=== PATIENT | female | born 1975 | race Caucasian/White ===

== ENCOUNTER 2016-07-31 18:13 | Emergency (ER) | payer SELFPAY | END 2016-07-31 18:42 | disposition left against medical advice (07) | LOC: ED 18:13 | DX: R51 Headache (principal); Z53.21 Procedure and treatment not carried out due to patient leaving prior to being seen by health care provider ==

== ENCOUNTER 2018-09-11 13:08 | Inpatient (IN) | payer OTHER ==
[2018-09-11 14:04] LABS: Basophils % (Auto) 0.5 % (0.0-1.8); Eosinophils % (Auto) 0.8 % (0.0-4.3); Hematocrit 41.5 % (30.3-42.9); Hemoglobin 13.9 gm/dl (10.1-14.3); Lymphocytes # (Auto) 3.3 K/mm3 (1.2-5.4); Lymphocytes % (Auto) 54.6 % (13.4-35.0); Mean Corpuscular HGB Conc 33 % (30-34); Mean Corpuscular Volume 93 fl (79-97); Monocytes # (Auto) 0.4 K/mm3 (0.0-0.8); Monocytes % (Auto) 6.3 % (0.0-7.3); Platelet Count 200 K/mm3 (140-440); Red Blood Count 4.48 M/mm3 (3.65-5.03); Red Cell Distribution Width 14.5 % (13.2-15.2)
--- NOTE | 2018-09-11 14:04 | Emergency Department Report ---
ED Chest Pain HPI - General Chief Complaint: Chest Pain Stated Complaint: CHEST PAIN Time Seen by Provider: 09/11/18 14:02 Source: patient, EMS Mode of arrival: Stretcher Limitations: No Limitations - History of Present Illness Initial Comments: Patient is a 43-year-old female that presents emergency room for chest pain. Patient states her chest pain side one hour ago. Patient states her chest pain was a 8 out of 10 and felt like something squeezing her heart. Patient states the pain is better with rest and nitroglycerin and aspirin. Patient states the pain was worse with exertion. Patient states she has high blood pressure. Patient states her blood pressures normally controllable lately she's been having elevated blood pressure and leg swelling. Patient denies shortness of breath. Patient denies abdominal pain. Patient denies fever. Patient denies diaphoresis. Patient denies nausea vomiting. MD Complaint: chest pain -: Sudden Onset: during rest Pain Location: substernal, left chest Pain Radiation: RUE, LUE Severity scale (0 -10): 7 Quality: heaviness Consistency: constant Improves With: nitroglycerin, rest Worsens With: exertion re: denies: nausea, vomting, diaphoresis, dyspnea, sense of impending doom Other Symptoms: leg swelling. denies: cough, fever, syncope, rash, acid taste in mouth, palpitations, burping Treatments Prior to Arrival: aspirin, nitroglycerin Aspirin use within the Past 7 Days: (1) Yes - Related Data On Oral Contraceptives: No Home Medications Medication Instructions Recorded Confirmed Last Taken Lisinopril/Hydrochlorothiazide 1 tab PO QDAY 09/11/18 09/11/18 Unknown [Zestoretic 20-12.5 mg] Allergies Allergy/AdvReac Type Severity Reaction Status Date / Time No Known Allergies Allergy Unverified 09/11/18 13:43 Heart Score - HEART Score History: Moderately suspicious EKG: Non-specific Age: 45-65 Risk factors: 1-2 risk factors Troponin: < normal limit HEART Score: 4 ED Review of Systems ROS: Stated complaint: CHEST PAIN Other details as noted in HPI Constitutional: denies: chills, fever Eyes: denies: eye pain, eye discharge, vision change ENT: denies: ear pain, throat pain Respiratory: denies: cough, shortness of breath, wheezing Cardiovascular: chest pain. denies: palpitations Endocrine: no symptoms reported Gastrointestinal: denies: abdominal pain, nausea, diarrhea Genitourinary: denies: urgency, dysuria, discharge Musculoskeletal: denies: back pain, joint swelling, arthralgia Skin: denies: rash, lesions Neurological: denies: headache, weakness, paresthesias Psychiatric: denies: anxiety, depression Hematological/Lymphatic: denies: easy bleeding, easy bruising ED Past Medical Hx - Past Medical History Previous Medical History?: Yes Hx Hypertension: Yes - Surgical History Past Surgical History?: No - Family History Family history: no significant - Social History Smoking Status: Current Every Day Smoker Substance Use Type: None - Medications Home Medications: Home Medications Medication Instructions Recorded Confirmed Last Taken Type Lisinopril/Hydrochlorothiazide 1 tab PO QDAY 09/11/18 09/11/18 Unknown History [Zestoretic 20-12.5 mg] ED Physical Exam - General Limitations: No Limitations General appearance: alert, in no apparent distress - Head Head exam: Present: atraumatic, normocephalic - Eye Eye exam: Present: normal appearance - ENT ENT exam: Present: mucous membranes moist - Neck Neck exam: Present: normal inspection - Respiratory Respiratory exam: Present: normal lung sounds bilaterally. Absent: respiratory distress - Cardiovascular Cardiovascular Exam: Present: regular rate, normal rhythm. Absent: systolic murmur, diastolic murmur, rubs, gallop - GI/Abdominal GI/Abdominal exam: Present: soft, normal bowel sounds - Rectal Rectal exam: Present: deferred - Extremities Exam Extremities exam: Present: normal inspection - Back Exam Back exam: Present: normal inspection - Neurological Exam Neurological exam: Present: alert, oriented X3 - Psychiatric Psychiatric exam: Present: normal affect, normal mood - Skin Skin exam: Present: warm, dry, intact, normal color. Absent: rash ED Course Vital Signs 09/11/18 09/11/18 09/11/18 13:43 13:44 13:50 Temperature 97.9 F Pulse Rate 63 73 Respiratory 21 16 Rate Blood Pressure 130/84 130/84 [Right] O2 Sat by Pulse 98 98 Oximetry 09/11/18 14:53 Temperature Pulse Rate 61 Respiratory 14 Rate Blood Pressure 130/94 [Right] O2 Sat by Pulse 99 Oximetry - Reevaluation(s) Reevaluation #1: Discussed all results with patient. Patient will be admitted to the hospitalist service. Patient agrees to plan of care. 09/11/18 14:34 - Consultations Consultation #1: Hospitalist consulted for admission. Hospitalist to admit patient. Hospitalist to assume care patient. 09/11/18 14:35 JOAN score - Joan Score Age > 65: (0) No Aspirin use within the Past 7 Days: (1) Yes 3 or more CAD Risk Factors: (0) No 2 or more Angina events in past 24 hrs: (0) No Known CAD with more than 50% Stenosis: (0) No Elevated Cardiac Markers: (0) No ST Deviation Greater than 0.5mm: (0) No JOAN Score: 1 ED Medical Decision Making - Lab Data Result diagrams: 09/11/18 13:51 09/11/18 13:51 - EKG Data -: EKG Interpreted by Me EKG shows normal: sinus rhythm, axis, intervals, QRS complexes, ST-T waves Rate: tachycardia - EKG Data Interpretation: LVH - Radiology Data Radiology results: report reviewed AP CHEST : 09/11/18 13:08:00 CLINICAL: Chest pain. COMPARISON:None FINDINGS: Normal heart and pulmonary vessels. The lungs are hyperinflated and clear. The bones and soft tissues are normal. IMPRESSION: Pulmonary hyperinflation and otherwise normal. - Medical Decision Making Patient is a 43-year-old female presents emergently with chest pain. Patient just improve with nitroglycerin and aspirin. Patient was admitted to the hospitalist service for further evaluation and treatment and rule out ACS. Patient's labs unremarkable. Patient EKG and chest x-ray unremarkable. Tobacco smoking cessation counseling done during her visit. 15 minutes spent with patient to do counseling and discuss quitting options and the risk of smoking. - Differential Diagnosis chest pain. ACS. Critical Care Time: Yes Critical care attestation.: If time is entered above; I have spent that time in minutes in the direct care of this critically ill patient, excluding procedure time. Critical Care Time: 35 minutes ED Disposition Clinical Impression: Tobacco abuse, Tobacco abuse counseling Chest pain Qualifiers: Chest pain type: unspecified Qualified Code(s): R07.9 - Chest pain, unspecified Disposition: -09 OP ADMIT IP TO THIS HOSP Is pt being admited?: Yes Does the pt Need Aspirin: No Condition: Critical Time of Disposition: 14:37
[2018-09-11 14:22] LABS: BUN/Creatinine Ratio 14; Blood Urea Nitrogen 10 mg/dL (7-17); Calcium 8.7 mg/dL (8.4-10.2); Hemolysis Index 12
[2018-09-11] MEDS ORDERED: SODIUM CHLORIDE FLUSH SYRINGE 10 ML IV PRN (19:21)
[2018-09-11] MEDS ORDERED: TYLENOL PO PRN (19:21)
[2018-09-11] MEDS ORDERED: DILAUDID IV PRN (19:21)
[2018-09-11] MEDS ORDERED: ZOFRAN IV PRN (19:21)
[2018-09-11] MEDS ORDERED: NON-FORMULARY (Lisinopril/Hydrochlorothiazide [Zestoretic 20-12.5 Mg] 1 TAB) PO SCH (19:30)
[2018-09-11] MEDS ORDERED: HCTZ PO SCH (19:30)
[2018-09-11] MEDS: PERCOCET 5/325 PO PRN (19:54)
[2018-09-11] MEDS: ZESTRIL PO SCH (19:55)
[2018-09-11] MEDS: SODIUM CHLORIDE FLUSH SYRINGE 10 ML IV SCH (21:21)
[2018-09-11] MEDS: PEPCID PO SCH (21:21)
[2018-09-12] MEDS ORDERED: MORPHINE IV PRN (02:32)
[2018-09-12] MEDS ORDERED: NITROSTAT SL PRN (02:34)
[2018-09-12] MEDS ORDERED: HEPARIN 10,000 UNITS/10 ML IV ONE (02:34)
[2018-09-12 02:44] LABS: Chol/HDL Ratio 3.9 %
[2018-09-12] MEDS ORDERED: HEPARIN/ 0.45% NACL-25,000 UNIT/500 ML 25,000 UNIT/500 ML BAG IV SCH (03:00)
[2018-09-12] MEDS ORDERED: ECOTRIN PO ONE (03:05)
--- NOTE | 2018-09-12 04:08 | Event Note ---
Date: 09/12/18 Received call from ANCELMO Gregory regarding critical lab value troponin 0.242. Stat EKG, Aspirin 325, Morphine and SL Nitro ordered. Pt started on Heparin gtt. Cardiology consult placed. Pt was assessed no s/s of distress noted. She denies CP. Pt states that she has left sided chest pressure. This is the same chest pressure pt experienced which prompted her to come to ED. Stat EKG reviewed and compared to EKG done on 09/11/2018. Development of non specific Twave inversions noted.
[2018-09-12 05:33] LABS: Hematocrit 41.3 % (30.3-42.9); Mean Corpuscular HGB Conc 34 % (30-34); Mean Corpuscular Volume 94 fl (79-97); Platelet Count 203 K/mm3 (140-440); Red Blood Count 4.42 M/mm3 (3.65-5.03); Red Cell Distribution Width 14.3 % (13.2-15.2)
[2018-09-12 05:39] LABS: INR 1.02 (0.87-1.13)
[2018-09-12 05:44] LABS: Partial Thromboplastin Time 121.4 Sec. (24.2-36.6)
[2018-09-12 05:57] LABS: Alanine Aminotransferase 10 units/L (7-56); Albumin 4.2 g/dL (3.9-5); BUN/Creatinine Ratio 10; Blood Urea Nitrogen 8 mg/dL (7-17); Calcium 9.6 mg/dL (8.4-10.2); Hemolysis Index 6
--- NOTE | 2018-09-12 06:58 | Event Note ---
Date: 09/11/18 Chest pain r/o Mi Elevated Troponin Heparin started
[2018-09-12 07:00] LABS: Basophils % (Manual) 0 % (0.0-1.8); Platelet Estimate Consistent w Auto; RBC Morphology Normal; Total Cells Counted 100
--- NOTE | 2018-09-12 07:18 | History and Physical Report ---
CHIEF COMPLAINT: Left-sided chest pain of one hour duration. HISTORY OF PRESENT ILLNESS: A 43-year-old female with history of hypertension, presents to the ER for chest pain of 1 hour duration. Chest pain worse with exertion. The patient also has been having high blood pressures recently and leg swelling. No shortness of breath. No palpitations. No diaphoresis. PAST MEDICAL HISTORY: Significant for hypertension. PAST SURGICAL HISTORY: None. FAMILY HISTORY: Hypertension. SOCIAL HISTORY: Smokes over half a pack a day. CURRENT MEDICATIONS: Lisinopril/hydrochlorothiazide 20/12.5 daily. REVIEW OF SYSTEMS: Significant for left-sided chest pain of 1 hour duration. Otherwise, review of systems negative. PHYSICAL EXAMINATION: GENERAL: Middle-aged female, cooperative during examination. VITAL SIGNS: Blood pressure 126/77, temperature 97.9, pulse is 54, respirations 16. HEENT: Unremarkable. Pupils equal and reactive. NECK: Supple, no lymphadenopathy, no thyromegaly. LUNGS: Clear to auscultation and percussion. Good air entry. CARDIOVASCULAR: S1, S2 heard. No gallop, no murmur, no rub. Apical impulse in left fifth intercostal space and midclavicular line. ABDOMEN: Soft and benign. No hepatosplenomegaly. No guarding, no rigidity. Hernial orifices are normal. EXTREMITIES: Good pedal pulses. No pedal edema. CENTRAL NERVOUS SYSTEM: Alert and oriented x 4, nonfocal exam. SKIN: Normal. LABORATORY DATA: Significant for normal CBC, normal electrolytes. First troponin was normal. Second troponin was slightly elevated at 0.099 and third troponin 0.242. Triglycerides are high 163. EKG shows normal sinus rhythm, sinus bradycardia, heart rate of 55 per minute, LVH by voltage criteria. Tall R waves in V4, V5, V6 and deep S waves in V2 and V3. Chest x-ray, no acute findings. ASSESSMENT AND PLAN: 1. Non-ST elevation myocardial infarction. The patient started on heparin drip. The patient is scheduled for Lexiscan, which may be canceled. We will get Cardiology consult for possible left heart catheterization. 2. Hypertension. Continue lisinopril and hydrochlorothiazide. 3. Hyperlipidemia. Continue statins. 4. Deep venous thrombosis prophylaxis. The patient is already on heparin drip. In summary, the patient has non-STEMI, so patient started on IV heparin drip. Cardiology consulted. JOB# [id number] TEETEE/EB SEE
[2018-09-12] MEDS ORDERED: LEXISCAN IV ONE (07:39)
--- NOTE | 2018-09-12 07:57 | Progress Note ---
Assessment and Plan Assessment and plan: Patient is a 43 yo woman with a history of hypertension and tobacco dependency who presented to [facility] ED with chest pains. Initial troponins were negative then turned positive. NSTEMI: treat with iv heparin drip with close monitoring, ASA/Statin, Cardiology consulted Hypertension: treat with bblocker stop HCTZ continue Lisinopril, low salt diet Dyslipidemia: treat with statin Tobacco dependency: cousel on stopping, offered Nicotine patch History Interval history: Patient was seen and examined. Follow-up on current diagnosis of NSTEMI. No overnight events reported to me. Patient denies any shortness breath, nausea/vomiting or severe headaches. Imaging, nursing note, chart, labs and old chart reviewed. Discussed with patient. Hospitalist Physical - Physical exam Narrative exam: Gen: WDWN, NAD, Awake, Alert, Orientated HEENT: NCAT, EOMI, PERRL, OP Clear Neck: supple, no adenopathy, no thyromegaly, no JVD CVS/Heart: RRR, normal S1S2, pulses present bilaterally Chest/Lungs: CTA B, Symmetrical chest expansion, good air entry bilaterally GI/Abdomen: soft, NTND, good bowel sounds, no guarding or rebound /Bladder: no suprapubic tenderness, no CVA or paraspinal tenderness Extermity/Skin: no c/c/e, no obvious rash MSK: FROM x 4 Neuro: CN 2-12 grossly intact, no new focal deficits Psych: calm - Constitutional Vitals: Temp Pulse Resp BP Pulse Ox 98.2 F 56 L 18 134/82 96 09/12/18 07:46 09/12/18 07:46 09/12/18 07:46 09/12/18 07:46 09/12/18 07:46 Results - Labs CBC & Chem 7: 09/12/18 04:34 09/12/18 04:34 Labs: Laboratory Last Values WBC 6.1 K/mm3 (4.5-11.0) 09/12/18 04:34 RBC 4.42 M/mm3 (3.65-5.03) 09/12/18 04:34 Hgb 14.0 gm/dl (10.1-14.3) 09/12/18 04:34 Hct 41.3 % (30.3-42.9) 09/12/18 04:34 MCV 94 fl (79-97) 09/12/18 04:34 MCH 32 pg (28-32) 09/12/18 04:34 MCHC 34 % (30-34) 09/12/18 04:34 RDW 14.3 % (13.2-15.2) 09/12/18 04:34 Plt Count 203 K/mm3 (140-440) 09/12/18 04:34 Lymph % (Auto) 54.6 % (13.4-35.0) H 09/11/18 13:51 [place] % (Auto) 6.3 % (0.0-7.3) 09/11/18 13:51 Eos % (Auto) 0.8 % (0.0-4.3) 09/11/18 13:51 Baso % (Auto) 0.5 % (0.0-1.8) 09/11/18 13:51 Lymph # 3.3 K/mm3 (1.2-5.4) 09/11/18 13:51 [place] # 0.4 K/mm3 (0.0-0.8) 09/11/18 13:51 Eos # 0.0 K/mm3 (0.0-0.4) 09/11/18 13:51 Baso # 0.0 K/mm3 (0.0-0.1) 09/11/18 13:51 Add Manual Diff Complete 09/12/18 04:34 Total Counted 100 09/12/18 04:34 Seg Neutrophils % Payroll Consultant 09/12/18 04:34 Seg Neuts % (Manual) 31.0 % (40.0-70.0) L 09/12/18 04:34 0 % 09/12/18 04:34 63.0 % (13.4-35.0) H 09/12/18 04:34 Reactive Lymphs % (Man) 0 % 09/12/18 04:34 5.0 % (0.0-7.3) 09/12/18 04:34 1.0 % (0.0-4.3) 09/12/18 04:34 0 % (0.0-1.8) 09/12/18 04:34 0 % 09/12/18 04:34 0 % 09/12/18 04:34 0 % 09/12/18 04:34 0 % 09/12/18 04:34 Nucleated RBC % Not Reportable 09/12/18 04:34 Seg Neutrophils # 2.3 K/mm3 (1.8-7.7) 09/11/18 13:51 Seg Neutrophils # Man 1.9 K/mm3 (1.8-7.7) 09/12/18 04:34 Band Neutrophils # 0.0 K/mm3 09/12/18 04:34 3.8 K/mm3 (1.2-5.4) 09/12/18 04:34 Abs React Lymphs (Man) 0.0 K/mm3 09/12/18 04:34 0.3 K/mm3 (0.0-0.8) 09/12/18 04:34 0.1 K/mm3 (0.0-0.4) 09/12/18 04:34 0.0 K/mm3 (0.0-0.1) 09/12/18 04:34 0.0 K/mm3 09/12/18 04:34 0.0 K/mm3 09/12/18 04:34 0.0 K/mm3 09/12/18 04:34 Blast Cells # 0.0 K/mm3 09/12/18 04:34 WBC Morphology Not Reportable 09/12/18 04:34 Hypersegmented Neuts Not Reportable 09/12/18 04:34 Hyposegmented Neuts Not Reportable 09/12/18 04:34 Hypogranular Neuts Not Reportable 09/12/18 04:34 Not Reportable 09/12/18 04:34 Not Reportable 09/12/18 04:34 Not Reportable 09/12/18 04:34 Not Reportable 09/12/18 04:34 Not Reportable 09/12/18 04:34 Not Reportable 09/12/18 04:34 Consistent w auto 09/12/18 04:34 Not Reportable 09/12/18 04:34 Plt Clumps, EDTA Not Reportable 09/12/18 04:34 Not Reportable 09/12/18 04:34 Not Reportable 09/12/18 04:34 Not Reportable 09/12/18 04:34 Plt Morphology Comment Not Reportable 09/12/18 04:34 RBC Morphology Normal 09/12/18 04:34 Dimorphic RBCs Not Reportable 09/12/18 04:34 Not Reportable 09/12/18 04:34 Not Reportable 09/12/18 04:34 Not Reportable 09/12/18 04:34 Not Reportable 09/12/18 04:34 Not Reportable 09/12/18 04:34 Not Reportable 09/12/18 04:34 Not Reportable 09/12/18 04:34 Not Reportable 09/12/18 04:34 Not Reportable 09/12/18 04:34 Not Reportable 09/12/18 04:34 Not Reportable 09/12/18 04:34 Not Reportable 09/12/18 04:34 Not Reportable 09/12/18 04:34 Not Reportable 09/12/18 04:34 Not Reportable 09/12/18 04:34 Not Reportable 09/12/18 04:34 Not Reportable 09/12/18 04:34 Not Reportable 09/12/18 04:34 Not Reportable 09/12/18 04:34 Acanthocytes (Spur) Not Reportable 09/12/18 04:34 Rouleaux Not Reportable 09/12/18 04:34 Not Reportable 09/12/18 04:34 Not Reportable 09/12/18 04:34 Not Reportable 09/12/18 04:34 Not Reportable 09/12/18 04:34 Hem Pathologist Commnt No 09/12/18 04:34 PT 13.1 Sec. (12.2-14.9) 09/12/18 04:34 INR 1.02 (0.87-1.13) 09/12/18 04:34 APTT 121.4 Sec. (24.2-36.6) H* 09/12/18 04:34 275.12 ng/mlDDU (0-234) H 09/12/18 04:34 Sodium 143 mmol/L (137-145) 09/12/18 04:34 Potassium 4.4 mmol/L (3.6-5.0) 09/12/18 04:34 Chloride 102.8 mmol/L (98-107) 09/12/18 04:34 Carbon Dioxide 27 mmol/L (22-30) 09/12/18 04:34 18 mmol/L 09/12/18 04:34 BUN 8 mg/dL (7-17) 09/12/18 04:34 0.8 mg/dL (0.7-1.2) 09/12/18 04:34 Estimated GFR > 60 ml/min 09/12/18 04:34 10 % 09/12/18 04:34 Glucose 95 mg/dL (65-100) 09/12/18 04:34 5.8 % (4-6) 09/11/18 19:52 Calcium 9.6 mg/dL (8.4-10.2) 09/12/18 04:34 0.50 mg/dL (0.1-1.2) 09/12/18 04:34 AST 23 units/L (5-40) 09/12/18 04:34 ALT 10 units/L (7-56) 09/12/18 04:34 82 units/L (35-129) 09/12/18 04:34 0.179 ng/mL (0.00-0.029) H* D 09/12/18 06:09 7.1 g/dL (6.3-8.2) 09/12/18 04:34 4.2 g/dL (3.9-5) 09/12/18 04:34 1.4 % 09/12/18 04:34 Triglycerides 163 mg/dL (2-149) H 09/12/18 00:35 Cholesterol 172 mg/dL (50-199) 09/12/18 00:35 108 mg/dL (50-130) 09/12/18 00:35 44 mg/dL (40-59) 09/12/18 00:35 3.90 % 09/12/18 00:35 Active Medications - Current Medications Current Medications: Generic Name Dose Route Start Last Admin Trade Name Freq PRN Reason Stop Dose Admin Acetaminophen 650 mg 09/11/18 19:21 Tylenol PO Q4H PRN Pain MILD(1-3)/Fever >100.5/BECERRA Aspirin 325 mg 09/12/18 10:00 Ecotrin PO QDAY [facility] Atorvastatin Calcium 40 mg 09/12/18 22:00 Lipitor PO QHS RADHA Famotidine 20 mg 09/11/18 22:00 09/11/18 21:21 Pepcid PO 20 mg BID RADHA Administration Hydrochlorothiazide 12.5 mg 09/11/18 19:30 09/11/18 19:55 Hctz PO 12.5 mg QDAY RADHA Administration Hydromorphone HCl 0.5 mg 09/11/18 19:21 Dilaudid IV Q3H PRN Pain , Severe (7-10) Heparin Sodium/Sodium Chloride 25,000 unit in 500 mls @ 15 mls/hr 09/12/18 03:00 09/12/18 03:13 Heparin/ 0.45% Nacl-25,000 Unit/500 Ml IV 750 units/hr TITRATE RADHA 15 mls/hr Administration Protocol 750 UNITS/HR Lisinopril 20 mg 09/11/18 19:30 09/11/18 19:55 Zestril PO 20 mg QDAY RADHA Administration Nitroglycerin 0.4 mg 09/12/18 02:34 Nitrostat SL .Q5MIN PRN Chest Pain Ondansetron HCl 4 mg 09/11/18 19:21 Zofran IV Q8H PRN Nausea And Vomiting Oxycodone/Acetaminophen 1 tab 09/11/18 19:21 09/11/18 19:54 Percocet 5/325 PO 1 tab Q6H PRN Administration Pain, Moderate (4-6) Regadenoson 0.4 mg 09/12/18 07:39 Lexiscan IV 09/12/18 07:40 ONCE ONE Sodium Chloride 10 ml 09/11/18 22:00 09/11/18 21:21 Sodium Chloride Flush Syringe 10 Ml IV 10 ml BID RADHA Administration Sodium Chloride 10 ml 09/11/18 19:21 Sodium Chloride Flush Syringe 10 Ml IV PRN PRN LINE FLUSH
[2018-09-12] MEDS: ECOTRIN PO SCH (09:15)
[2018-09-12] MEDS: PEPCID PO SCH ×2 (09:16→22:45)
[2018-09-12] MEDS: ZESTRIL PO SCH (09:16)
[2018-09-12] MEDS: LOPRESSOR PO SCH ×2 (09:16→22:46)
[2018-09-12] MEDS ORDERED: XYLOCAINE 2% INFILTRATI ONE (10:17)
[2018-09-12] MEDS ORDERED: NACL 0.9% 500 ML 500 ML ONE (10:18)
--- NOTE | 2018-09-12 10:18 | Consultation ---
History of Present Illness Consult date: 09/12/18 Consult reason: chest pain, elevated troponin History of present illness: This is a 43 year old woman with a history of hypertension and tobacco abuse. Patient does not have a pcp and ran out of her medications several weeks ago. She was brought to this hospital with acute onset, nonexertional chest pain associated with palpitations. Patient denies unusual shortness of breath and she denies diaphoresis. Troponins has a trend upwards. A EKG is sinus rhythm with LVH. A cardiac consultation has been requested for further evaluation. Medications and Allergies Allergies Allergy/AdvReac Type Severity Reaction Status Date / Time No Known Allergies Allergy Unverified 09/11/18 13:43 Home Medications Medication Instructions Recorded Confirmed Last Taken Type Lisinopril/Hydrochlorothiazide 1 tab PO QDAY 09/11/18 09/11/18 Unknown History [Zestoretic 20-12.5 mg] Active Meds: Active Medications Acetaminophen (Tylenol) 650 mg PO Q4H PRN PRN Reason: Pain MILD(1-3)/Fever >100.5/BECERRA Aspirin (Ecotrin) 325 mg PO QDAY [facility] Last Admin: 09/12/18 09:15 Dose: 325 mg Documented by: Atorvastatin Calcium (Lipitor) 40 mg PO QHS [facility] Famotidine (Pepcid) 20 mg PO BID [facility] Last Admin: 09/12/18 09:16 Dose: 20 mg Documented by: Hydromorphone HCl (Dilaudid) 0.5 mg IV Q3H PRN PRN Reason: Pain , Severe (7-10) Heparin Sodium/Sodium Chloride (Heparin/ 0.45% Nacl-25,000 Unit/500 Ml) 25,000 unit in 500 mls @ 15 mls/hr IV TITRATE [facility]; Protocol Last Admin: 09/12/18 03:13 Dose: 750 units/hr, 15 mls/hr Documented by: Lisinopril (Zestril) 20 mg PO QDAY [facility] Last Admin: 09/12/18 09:16 Dose: 20 mg Documented by: Metoprolol Tartrate (Lopressor) 50 mg PO BID [facility] Last Admin: 09/12/18 09:16 Dose: 50 mg Documented by: Nicotine (Habitrol) 14 mg TD QDAY [facility] Nitroglycerin (Nitrostat) 0.4 mg SL .Q5MIN PRN PRN Reason: Chest Pain Ondansetron HCl (Zofran) 4 mg IV Q8H PRN PRN Reason: Nausea And Vomiting Oxycodone/Acetaminophen (Percocet 5/325) 1 tab PO Q6H PRN PRN Reason: Pain, Moderate (4-6) Last Admin: 09/11/18 19:54 Dose: 1 tab Documented by: Sodium Chloride (Sodium Chloride Flush Syringe 10 Ml) 10 ml IV BID RADHA Last Admin: 09/11/18 21:21 Dose: 10 ml Documented by: Sodium Chloride (Sodium Chloride Flush Syringe 10 Ml) 10 ml IV PRN PRN PRN Reason: LINE FLUSH Physical Examination Vital Signs Pulse Resp BP Pulse Ox 63 21 130/84 99 09/11/18 13:43 09/11/18 13:43 09/11/18 13:43 09/11/18 13:43 General appearance: no acute distress HEENT: Positive: PERRL Neck: Positive: trachea midline Cardiac: Positive: Reg Rate and Rhythm Lungs: Positive: Decreased Breath Sounds Neuro: Positive: Grossly Intact Extremities: Absent: edema Results 09/12/18 04:34 09/12/18 04:34 Cardiac Enzymes 09/12/18 Range/Units 04:34 AST 23 (5-40) units/L Coagulation 09/12/18 Range/Units 04:34 PT 13.1 (12.2-14.9) Sec. INR 1.02 (0.87-1.13) APTT 121.4 H* (24.2-36.6) Sec. Lipids 09/12/18 Range/Units 00:35 Triglycerides 163 H (2-149) mg/dL Cholesterol 172 (50-199) mg/dL HDL Cholesterol 44 (40-59) mg/dL Cholesterol/HDL Ratio 3.90 % CBC 09/11/18 09/12/18 Range/Units 13:51 04:34 WBC 6.1 6.1 (4.5-11.0) K/mm3 RBC 4.48 4.42 (3.65-5.03) M/mm3 Hgb 13.9 14.0 (10.1-14.3) gm/dl Hct 41.5 41.3 (30.3-42.9) % Plt Count 200 203 (140-440) K/mm3 Lymph # 3.3 (1.2-5.4) K/mm3 [place] # 0.4 (0.0-0.8) K/mm3 Eos # 0.0 (0.0-0.4) K/mm3 Baso # 0.0 (0.0-0.1) K/mm3 Comprehensive Metabolic Panel 09/11/18 09/12/18 Range/Units 13:51 04:34 Sodium 142 143 (137-145) mmol/L Potassium 4.2 4.4 (3.6-5.0) mmol/L Chloride 105.2 102.8 (98-107) mmol/L Carbon Dioxide 25 27 (22-30) mmol/L BUN 10 8 (7-17) mg/dL Creatinine 0.7 0.8 (0.7-1.2) mg/dL Glucose 91 95 (65-100) mg/dL Calcium 8.7 9.6 (8.4-10.2) mg/dL AST 23 (5-40) units/L ALT 10 (7-56) units/L Alkaline Phosphatase 82 (35-129) units/L Total Protein 7.1 (6.3-8.2) g/dL Albumin 4.2 (3.9-5) g/dL Assessment and Plan Chest pain Hypertension Tobacco abuse
[2018-09-12] MEDS: HEPARIN/NS 5000 UNIT/500ML(CATH LAB) 1,000 ML IR ONE ×2 (11:02→11:30)
[2018-09-12] MEDS: NITROGLYCERIN SYRINGE 3 ML ONE ×2 (11:02→11:34)
[2018-09-12] MEDS: CALAN ONE ×2 (11:03→11:34)
[2018-09-12] MEDS: HEPARIN 10,000 UNITS/10 ML ONE ×3 (11:04→11:42)
[2018-09-12] MEDS: SUBLIMAZE ONE ×2 (11:28→11:31)
[2018-09-12] MEDS: VERSED ONE ×2 (11:28→11:31)
[2018-09-12] MEDS ORDERED: ALUM-MAG HYDROX-SIMETH 200-200-20MG/5ML ONE (12:11)
[2018-09-12] MEDS ORDERED: PLAVIX ONE (12:11)
[2018-09-12] MEDS: SODIUM CHLORIDE FLUSH SYRINGE 10 ML IV SCH ×2 (12:48→22:45)
--- NOTE | 2018-09-12 12:49 | Cardiac Catherization Report ---
CARDIAC CATHETERIZATION AND CORONARY ANGIOPLASTY REPORT REASON FOR PROCEDURE: The patient is a 43-year-old woman, history of chronic tobacco abuse, presented to the hospital with acute coronary syndrome, non-ST elevation myocardial infarction. Cardiac catheterization was recommended. PROCEDURE: 1. Left heart catheterization. 2. Selective left and right coronary angiography. 3. Left ventricular angiography. 4. Coronary angioplasty and stenting of the distal right coronary artery. 5. Sedation time start 11:28, end 11:58. The patient was prepped and draped in a sterile fashion after informed consent. The right radial cath site was prepped and draped after a negative Hemal's test. The right radial artery was entered using Seldinger technique followed by placement of a 6-Hungarian hydrophilic sheath. Routine radial cocktail was administered via the sheath. Selective left and right coronary angiography was performed using #3.5 left Verito, and #4 right Verito. The right Verito was used for left ventricle angiography. The angiograms were reviewed. CORONARY ANGIOGRAPHY: Left main coronary artery was angiographically normal. Left anterior descending artery contained mild disease in its mid segment, with up to 20% luminal narrowing. There was another, 20% luminal stenosis of the distal LAD in the apical segment. The circumflex artery and its obtuse marginal branches were free of significant disease. The right coronary artery was dominant. This vessel contained [id number] atherosclerosis of its mid segment, with up to 50% luminal stenosis. Most significantly, the distal right coronary artery contained a hazy, greater than 90% stenosis of the distal posterior left ventricular branch. This appeared to be the infarct related lesion. Left ventricular systolic function was at the lower limits of normal, ejection fraction 45-50%. CORONARY ANGIOPLASTY: Ad hoc coronary angioplasty of the right coronary artery was performed. We selected a #4 right Verito guiding catheter and advanced to the right coronary ostium. A 0.014 inch [employer] 50 guidewire was introduced, and delivered into the distal vessel, across the lesional segment. In a primary stenting maneuver, we deployed a 2.25 x 8 mm drug-eluting stent, and inflated the stent to optimal pressures. Following stenting, there was an excellent angiographic result, 0 residual stenosis and JOAN 3 flow was maintained in the vessel. Procedure was well tolerated by the patient and no complications. The catheters and the wires were removed, sheath removed, and hemostasis achieved using manual compression. The patient was returned to the postprocedure unit in stable condition. CONCLUSION: 1. Coronary artery disease with greater than 90% stenosis of the distal right coronary artery, located in the mid segment of the posterior left ventricular branch. 2. Left ventricular systolic function at the lower limits of normal, ejection fraction 45-50%. 3. Successful angioplasty and stenting of the distal right coronary artery with deployment of a 2.25 mm drug-eluting stent. [facility]# [id number] LEO/NTS
[2018-09-12] MEDS: HABITROL TD SCH (12:52)
[2018-09-12] MEDS ORDERED: NACL 0.9% 1000 ML 1,000 ML IV SCH (14:00)
[2018-09-12] MEDS: PERCOCET 5/325 PO PRN ×2 (15:10→20:08)
[2018-09-12] MEDS: IMDUR PO SCH (15:10)
[2018-09-12] MEDS ORDERED: ATIVAN IV ONE (22:46)
[2018-09-13 06:00] LABS: Hematocrit 39.3 % (30.3-42.9); Hemoglobin 13.3 gm/dl (10.1-14.3); Mean Corpuscular HGB Conc 34 % (30-34); Mean Corpuscular Volume 92 fl (79-97); Platelet Count 202 K/mm3 (140-440); Red Blood Count 4.26 M/mm3 (3.65-5.03); Red Cell Distribution Width 13.7 % (13.2-15.2)
[2018-09-13 06:25] LABS: Creatine Kinase MB 7.5 ng/mL (0.0-4.0)
[2018-09-13 06:28] LABS: BUN/Creatinine Ratio 15; Blood Urea Nitrogen 12 mg/dL (7-17); Calcium 9.6 mg/dL (8.4-10.2); Hemolysis Index 3
--- NOTE | 2018-09-13 07:50 | XRay Report ---
AP CHEST: HISTORY: Post PCI AP view of the chest demonstrates a normal mediastinal and cardiac contour with clear lungs and normal bony and soft tissue structures. IMPRESSION: Unremarkable AP chest.
[2018-09-13] MEDS: PERCOCET 5/325 PO PRN (09:39)
[2018-09-13] MEDS: IMDUR PO SCH (09:39)
[2018-09-13] MEDS: ECOTRIN PO SCH (09:39)
[2018-09-13] MEDS: ZESTRIL PO SCH (09:40)
[2018-09-13] MEDS: LOPRESSOR PO SCH (09:40)
[2018-09-13] MEDS: HABITROL TD SCH (09:40)
[2018-09-13] MEDS: SODIUM CHLORIDE FLUSH SYRINGE 10 ML IV SCH (09:40)
[2018-09-13] MEDS: PEPCID PO SCH (09:40)
--- NOTE | 2018-09-13 09:40 | Progress Note ---
Assessment and Plan NSTEMI s/p PCI of the distal RCA using LILY Hypertension Tobacco abuse Recommendations: Medical therapy for coronary artery diseasae including dual oral antiplatelet therapy with Plavix and aspirin without interruption. Strongly advised to stop smoking. Stable for discharge, cardiac penaloza, today. Subjective Date of service: 09/13/18 Interval history: Patient reports she is feeling better. Right radial cath site intact. Objective Vital Signs Temp Pulse Resp BP BP Pulse Ox 09/13/18 07:55 97.9 F 65 18 112/66 97 09/13/18 04:40 98.0 F 58 L 16 101/69 99 09/13/18 04:00 55 L 09/13/18 00:39 58 L 98 09/12/18 23:40 59 L 09/12/18 22:46 68 122/86 09/12/18 21:24 97.9 F 75 18 122/86 96 09/12/18 19:59 80 98 09/12/18 19:40 75 09/12/18 16:19 98.0 F 57 L 18 134/81 95 09/12/18 15:10 72 162/96 09/12/18 15:01 152/104 09/12/18 15:00 134/98 09/12/18 14:59 161/96 - Physical Examination General: No Apparent Distress HEENT: Positive: PERRL Neck: Positive: trachea midline Cardiac: Positive: Reg Rate and Rhythm Lungs: Positive: Decreased Breath Sounds Neuro: Positive: Grossly Intact Extremities: Absent: edema - Labs and Meds Cardiac Enzymes 09/13/18 Range/Units 05:33 CK-MB (CK-2) 7.5 H (0.0-4.0) ng/mL CBC 09/13/18 Range/Units 05:33 WBC 5.9 (4.5-11.0) K/mm3 RBC 4.26 (3.65-5.03) M/mm3 Hgb 13.3 (10.1-14.3) gm/dl Hct 39.3 (30.3-42.9) % Plt Count 202 (140-440) K/mm3 Comprehensive Metabolic Panel 09/13/18 Range/Units 05:33 Sodium 142 (137-145) mmol/L Potassium 4.3 (3.6-5.0) mmol/L Chloride 103.6 (98-107) mmol/L Carbon Dioxide 27 (22-30) mmol/L BUN 12 (7-17) mg/dL Creatinine 0.8 (0.7-1.2) mg/dL Glucose 82 (65-100) mg/dL Calcium 9.6 (8.4-10.2) mg/dL
[2018-09-13] MEDS ORDERED: PLAVIX PO SCH (10:00)
--- NOTE | 2018-09-13 11:59 | Discharge Summary ---
Providers - Providers Date of Admission: 09/12/18 02:32 Date of discharge: 09/13/18 Attending physician: ZAHIDA TESFAYE 09/12/18 Consult to Cardiac Rehabilitation [CONS] Routine Reason For Exam: post pci 09/12/18 02:36 Consult to Cardiology [CONS] Routine Consulting Provider: DARYL SIN Reason For Exam: ACS Primary care physician: [facility], [place] Hospitalization Condition: Stable Hospital course: Patient is a 43 yo woman with a history of hypertension and tobacco dependency who presented to [facility] ED with chest pains. Initial troponins were negative then turned positive. She went for [facility] which showed 90% stenosis of RCA which was stented with LILY via right radial artery approach. NSTEMI s/p PCI to RCA with LILY: ASA/plavix/Statin, Cardiology consulted,input noted Acute diastolic dysfunction, EF 45-50% due to above, poa Hypertension: treat with bblocker stop HCTZ continue Lisinopril, low salt diet Dyslipidemia: treat with statin Tobacco dependency: student counselor on stopping, offered Nicotine patch Disposition: DC- TO HOME OR SELFCARE Time spent for discharge: 37 minutes Core Measure Documentation - Palliative Care Palliative Care/ Comfort Measures: Not Applicable - Core Measures Any of the following diagnoses?: acute MD, heart failure - VTE Discharge Requirements Deep Vein Thrombosis/Pulmonary Embolism Present on Admission: No Has pt received <5 days of overlap therapy or INR<2.0: No Anticoagulant overlap therapy prescribed at discharge: No Contraindication No Overlap Therapy order at DC: Not Indicated - Acute MD Discharge Requirements Aspirin at discharge: Yes HENRIQUE/ARB for LVSD if EF <40%: No Reason for no HENRIQUE/ARB: Hypotension Beta kyra at discharge: Yes Statin for LDL = or >100 mg/dl on DC: Yes - Heart Failure Discharge Requirements HENRIQUE/ARB for LVSD if EF <40%: No Reason for no HENRIQUE/ARB: Hypotension Beta kyra at discharge: Yes Exam - Physical Exam Narrative exam: Gen: WDWN, NAD, Awake, Alert, Orientated HEENT: NCAT, EOMI, PERRL, OP Clear Neck: supple, no adenopathy, no thyromegaly, no JVD CVS/Heart: RRR, normal S1S2, pulses present bilaterally Chest/Lungs: CTA B, Symmetrical chest expansion, good air entry bilaterally GI/Abdomen: soft, NTND, good bowel sounds, no guarding or rebound /Bladder: no suprapubic tenderness, no CVA or paraspinal tenderness Extermity/Skin: no c/c/e, no obvious rash MSK: FROM x 4 Neuro: CN 2-12 grossly intact, no new focal deficits Psych: calm - Constitutional Vitals: Temp Pulse Resp BP Pulse Ox 97.9 F 65 18 112/66 100 09/13/18 07:55 09/13/18 09:39 09/13/18 07:55 09/13/18 09:39 09/13/18 10:17 Plan Activity: other (no strenous activity unless cleared by Cardiology) Diet: low salt Special Instructions: smoking cessation Follow up with: KRAIG KRAMERHOLLEY MD CONNER [Primary Care Provider] - 3-5 Days DARYL SIN MD [Staff Physician] - 7 Days Prescriptions: Zolpidem [Ambien] 5 mg PO QHS PRN #15 tablet PRN Reason: Sleep AtorvaSTATin [Lipitor] 40 mg PO QHS #30 tablet Aspirin [Aspirin BABY CHEW TAB] 81 mg PO QDAY #30 tab Nicotine [Habitrol] 14 mg TD QDAY #14 patch ISOSORBIDE MONOnitrate [Imdur ER] 30 mg PO QDAY #30 tablet Metoprolol [Lopressor TAB] 50 mg PO BID #60 tablet Nitroglycerin [Nitrostat] 0.4 mg SL .Q5MIN PRN #30 tablet PRN Reason: Chest Pain Famotidine [Pepcid] 20 mg PO BID #60 tablet oxyCODONE /ACETAMINOPHEN [Percocet 5/325 mg] 1 tab PO Q6H PRN #20 tablet PRN Reason: Pain , Severe (7-10) Clopidogrel [Plavix] 75 mg PO QDAY #30 tablet Lisinopril [Zestril TAB] 20 mg PO QDAY #30 tablet
[2018-09-13 12:02] VITALS: BP 101/69
== END 2018-09-13 18:06 | disposition home or self-care (01) | DRG 247 ==
LOC: ED 13:08 → 4A 14:37 → OBSVTOIN 09-12 02:32
PROVIDERS: ADMIT Internal Medicine; ATTEND Internal Medicine
PROC: 027034Z Dilation of Coronary Artery, One Artery with Drug-eluting Intraluminal Device, Percutaneous Approach (ICD-10-PCS; principal; 2018-09-12)
PROC: 4A023N7 Measurement of Cardiac Sampling and Pressure, Left Heart, Percutaneous Approach (ICD-10-PCS; 2018-09-12)
PROC: B2111ZZ Fluoroscopy of Multiple Coronary Arteries using Low Osmolar Contrast (ICD-10-PCS; 2018-09-12)
PROC: B2151ZZ Fluoroscopy of Left Heart using Low Osmolar Contrast (ICD-10-PCS; 2018-09-12)
DX: I21.4 Non-ST elevation (NSTEMI) myocardial infarction (principal); I10 Essential (primary) hypertension; F17.210 Nicotine dependence, cigarettes, uncomplicated; E78.5 Hyperlipidemia, unspecified; I25.10 Atherosclerotic heart disease of native coronary artery without angina pectoris
CPT/HCPCS: 36415; 71045; 80048; 80053; 80061; 82550; 82553; 83036; 84484; 85007; 85025; 85027; 85347; 85379; 85520; 85610; 85730; 92928; 93005; 93010; 93458; 96374; 99406; G0378; A9270-GY; C1769; C1874; C1887; C1894; C9600; J1644; J2060; J2250; J2785; J3010; J7040; Q9967